=== PATIENT | female | born 1990 | race Caucasian/White ===

== ENCOUNTER → 2016-11-13 | Outpatient (CLI) | payer OTHER | LOC: M LRY 16:40 | PROVIDERS: ATTEND Physician Assistant | DX: N91.0 Primary amenorrhea (principal) ==

== ENCOUNTER → 2016-12-04 | Outpatient (CLI) | payer OTHER ==
[2016-12-04 13:41] LABS: ALBUMIN 3.9 GM/DL (3.2-5.2); ALBUMIN/GLOBULIN RATIO 1.15 (1.00-1.93); ALKALINE PHOSPHATASE 97 U/L (45-117); ALT/SGPT 25 U/L (12-78); ANION GAP 8 MEQ/L (8-16); AST/SGOT 17 U/L (15-37); BILIRUBIN,TOTAL 0.4 MG/DL (0.2-1.0); BLOOD UREA NITROGEN 12 MG/DL (7-18); CALCIUM LEVEL 8.7 MG/DL (8.5-10.1); CARBON DIOXIDE LEVEL 27 MEQ/L (21-32); CHLORIDE LEVEL 107 MEQ/L (98-107); CREATININE FOR GFR 0.75 MG/DL (0.55-1.02); GLOMERULAR FILTRATION RATE > 60.0 (>60); GLUCOSE, FASTING 95 MG/DL (70-105); POTASSIUM SERUM 4.4 MEQ/L (3.5-5.1); SODIUM LEVEL 142 MEQ/L (136-145); TOTAL PROTEIN 7.3 GM/DL (6.4-8.2)
== END ==
LOC: M SMT 10:28
PROVIDERS: ATTEND Family Medicine
DX: R73.01 Impaired fasting glucose (principal)

== ENCOUNTER 2017-01-27 14:39 | Emergency (ER) | payer OTHER ==
[~2017-01-27] VITALS: Ht 152.4 cm; Wt 76.2 kg
[2017-01-27] MEDS ORDERED: TRAZ10TA GT (15:06)
[2017-01-27] MEDS ORDERED: IBUP80TA PO (15:06)
[2017-01-27] MEDS ORDERED: FLUT11IN (15:06)
[2017-01-27] MEDS ORDERED: VENL150C43 (15:06)
[2017-01-27] MEDS ORDERED: TESS100C PO (17:44)
[2017-01-27 17:53] VITALS: BP 118/76
--- NOTE | 2017-01-28 07:10 | REP ---
CHEST, TWO VIEWS: HISTORY: Cough. The lungs are clear. The heart is normal in size. The pulmonary vasculature is normal in appearance. The bony structure is intact. IMPRESSION: No acute disease. Signed by Ernique Schilling MD 01/28/2017 08:26 A
== END 2017-01-27 17:54 | disposition home or self-care (01) ==
LOC: M ED 16:35
DX: J06.9 Acute upper respiratory infection, unspecified (principal); J30.2 Other seasonal allergic rhinitis; Z87.891 Personal history of nicotine dependence; Z91.018 Allergy to other foods; Z91.013 Allergy to seafood; Z79.899 Other long term (current) drug therapy